=== PATIENT | female | born 1960 | race Caucasian/White ===

== ENCOUNTER → 2018-07-27 | Outpatient (CLI) | payer OTHER ==
[~2018-07-27] MED LIST: ARIMIDEX PO; BUPROPION XL150 MG PO; CLONAZEPAM PO; LISINOPRIL20 MG PO; OXCARBAZEPINE600 MG PO; PERCOCET PO; PHENERGAN 25 MG25 M1 PO; PRILOSEC 20 MG20 MG PO; SERTRALINE HCL25 M1 PO; SIMVASTATIN40 MG PO; VALIUM5 MG PO
== END ==
LOC: RAD 16:44
DX: M25.552 Pain in left hip (principal); M54.5 Low back pain

== ENCOUNTER → 2018-09-03 | Outpatient (CLI) | payer OTHER | LOC: RAD 15:45 | DX: R05 Cough (principal) ==

== ENCOUNTER → 2021-01-22 | Outpatient (CLI) | payer OTHER | LOC: RAD 11:51 | PROVIDERS: ATTEND Nurse Practitioner | DX: M54.5 Low back pain (principal) ==